=== PATIENT | female | born 1945 | race Caucasian/White ===

== ENCOUNTER 2020-11-07 09:25 | Inpatient (IN) | payer OTHER, BC ==
[~2020-11-07] VITALS: Ht 165.1 cm; Wt 54.0 kg
[2020-11-07 09:27] VITALS: BP 124/37
--- NOTE | 2020-11-07 09:47 | NUR ---
[facility] [phone]
--- NOTE | 2020-11-07 10:00 | NUR ---
PT HAS HX CELLULITIS IN LE BILATERALLY W TIGHTNESS AND SWELLING BILATERALLY W RIGHT BEING SLIGHTLY LARGER THAN LEFT.
[2020-11-07] MEDS ORDERED: AMLODIPINE BESY10 MG PO (10:53)
[2020-11-07] MEDS ORDERED: CYANOCOBAL1000 MCG/1 INJECTION (10:54)
[2020-11-07] MEDS ORDERED: DESLORATADINE5 MG PO (10:55)
[2020-11-07] MEDS ORDERED: ESCITALOPRAM OX20 MG PO (10:56)
[2020-11-07] MEDS ORDERED: LEVOTHYROXINE75 MCG PO (10:58)
[2020-11-07 11:00] LABS: HEMATOCRIT 31.9 % (37.0-47.0); HEMOGLOBIN 10.4 gm/dL (12.0-15.0); MCH 30.8 pg (26.0-34.0); MCHC 32.7 g/dL (28.0-37.0); MCV 94.1 fL (80.0-100.0); PLATELET COUNT 181 thou/uL (150-400); RBC 3.39 mil/uL (4.20-5.00); RDW 13.8 % (10.5-14.5); WBC 5.5 thou/uL (4.0-11.0)
[2020-11-07 11:07] LABS: ANION GAP 13 mmol/L (7-16); BUN 24 mg/dL (7-18); CHLORIDE 105 mmol/L (98-107); CO2 21 mmol/L (21-32); CREATININE 1.9 mg/dL (0.6-1.0); GLUCOSE 88 mg/dL (74-106); POTASSIUM 4.4 mmol/L (3.5-5.1); SODIUM 139 mmol/L (136-145)
[2020-11-07 11:13] LABS: URINE BILIRUBIN NEGATIVE (Negative); URINE BLOOD NEGATIVE (Negative); URINE CLARITY CLEAR; URINE COLOR YELLOW; URINE GLUCOSE-RANDOM* NEGATIVE (Negative); URINE KETONES NEGATIVE (Negative); URINE LEUKOCYTES-REFLEX NEGATIVE (Negative); URINE NITRITE-REFLEX NEGATIVE (Negative); URINE PROTEIN (DIPSTICK) TRACE (Negative); URINE UROBILINOGEN 0.2 E.U./dl (0.2-1.0)
[2020-11-07 11:17] LABS: ALBUMIN 3.4 g/dL (3.4-5.0); DIRECT BILIRUBIN 0.2 mg/dL (<0.1-0.2); SGOT 24 U/L (15-37); SGPT 22 U/L (14-59); TOTAL BILIRUBIN 0.8 mg/dL (0.2-1.0); TOTAL PROTEIN 6.9 g/dL (6.4-8.2); TROPONIN-I <0.06 ng/mL (<0.06)
[2020-11-07] MEDS ORDERED: LIPITOR 40 MG T40 M1 PO (11:19)
[2020-11-07] MEDS ORDERED: OMEPRAZOLE 20 M20 M1 PO (11:19)
[2020-11-07] MEDS ORDERED: GABAPENTIN 100100 MG PO (11:20)
[2020-11-07] MEDS ORDERED: CLINDAMYCIN HC300 MG PO (11:20)
[2020-11-07] MEDS ORDERED: CREON DR 6,0001 EACH PO (11:20)
[2020-11-07] MEDS ORDERED: PROPRANOLOL 1010 M1 PO (11:21)
[2020-11-07] MEDS ORDERED: TRAMADOL 50 MG50 MG PO (11:22)
[2020-11-07] MEDS ORDERED: CARAFATE 1 GM TA1 G1 PO (11:23)
[2020-11-07] MEDS ORDERED: MIRALAX119 GM PO (11:25)
[2020-11-07] MEDS ORDERED: SANDOSTATIN LAR20 MG IM (11:25)
[2020-11-07] MEDS ORDERED: CALCIUM 600 +1 EAC6 PO (11:25)
--- NOTE | 2020-11-07 11:44 | EKG ---
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 11/07/20 1144 1034 1034 Joo Dalton MD, FAC /EPI
[2020-11-07 13:12] LABS: ABSOLUTE NEUTROPHILS 3.6 thou/uL (1.4-8.2)
[2020-11-07 13:13] LABS: ANISOCYTOSIS 1+
[2020-11-07 13:14] LABS: HYPOCHROMASIA 2+; MICROCYTES 1+; POLYCHROMASIA 1+
[2020-11-07 13:15] LABS: OVALOCYTES FEW
[2020-11-07 13:19] VITALS: BP 124/78
[2020-11-07 16:52] VITALS: BP 135/69
--- NOTE | 2020-11-07 18:02 | NUR ---
PATIENT ARRIVED TO UNIT AT APPROX 1345. PATIENT WALKED TO BED; SBA W STEADY GAIT. PATIENT USES A WALKER AT HOME. ADMISSIONS HX AND EDUCATION DOCUMENTED. MED REC. COMPLETE. ON A REGULAR DIET AND TOLERATING WELL. SISTER AT BEDSIDE & HELPS ANSWER QUESTIONS. FALL PRECAUTIONS IN PLACE. WILL CONTINUE TO MONITOR
[2020-11-07 19:28] VITALS: BP 128/53
[2020-11-08 03:55] VITALS: BP 141/38
[2020-11-08 05:13] LABS: HEMATOCRIT 29.6 % (37.0-47.0); HEMOGLOBIN 9.9 gm/dL (12.0-15.0); MCH 30.8 pg (26.0-34.0); MCHC 33.4 g/dL (28.0-37.0); MCV 92.4 fL (80.0-100.0); RBC 3.2 mil/uL (4.20-5.00); RDW 13.7 % (10.5-14.5); WBC 4.9 thou/uL (4.0-11.0)
[2020-11-08 05:30] LABS: CALCIUM 8.7 mg/dL (8.5-10.1); CREATININE 1.8 mg/dL (0.6-1.0); POTASSIUM 3.6 mmol/L (3.5-5.1)
--- NOTE | 2020-11-08 07:49 | NUR ---
Assumed pt care at 1900. A/OX3,forgetful but able to voice needs. Hx of short term memory loss. VSS. C/o pain to left wrist, in a splint;medicted per EMAR with relief reported. Pt is up with RW/GB to the BR. Continent of B&B. Non-pitting edema noted on BLE,encouraged to keep extremities elevated while laying down. Extremities slightly pink and cool to touch. Fall precautions in place,needs reminders to call for help before getting out of bed but doesn't always call. Will continue to monitor pt.
[2020-11-08 09:15] VITALS: BP 189/87
--- NOTE | 2020-11-08 10:29 | 2DMMODE ---
[facility] [place] [address] 2 D/M-MODE ECHOCARDIOGRAM Name: CIARA EATON Room #: 455-P ADM IN M.R.#: [id number] Admission: 11/07/20 Attend Phys: Dimitri Walters MD Discharge: Date of : 43 Report #: [id number] THIS REPORT FOR: cc: Faisal Ramirez MD, Christopher B. MD Santiago, Patrick MD [facility] ~ APPROVED REPORT Study performed: 11/08/2020 09:20:20 EXAM: Comprehensive 2D, Doppler, and color-flow Echocardiogram Patient Location: Bedside Room #: [facility] Status: routine BSA: 1.59 HR: 73 bpm BP: 141/38 mmHg Rhythm: NSR Other Information Study Quality: Adequate/poor apical window Technically limited study due to thin body habitus/lung interference.. Indications BLE, CHF. 2D Dimensions IVSd: 9.04 (7-11mm) LVOT Diam: 20.35 (18-24mm) LVDd: 44.99 mm PWd: 8.84 (7-11mm) Ascending Ao: 33.42 (22-36mm) LVDs: 32.23 (25-40mm) Left Atrium: 41.08 (27-40mm) Aortic Root: 35.98 mm Volumes Left Atrial Volume (Systole) Single Plane 4CH: 64.01 mL Single Plane 2CH: 60.80 mL LA ESV Index: 42.00 mL/m2 Aortic Valve AoV Peak Ankur.: 2.39 m/s AO Peak Gr.: 22.93 mmHg LVOT Max P.20 mmHg AO Mean Gr.: 11.33 mmHg [facility] [address] [place] [address] 2 D/M-MODE ECHOCARDIOGRAM Name: CIARA EATON Room #: 455-P [facility] IN [facility]#: [id number] Admission: 11/07/20 Attend Phys: Dimitri Walters MD Discharge: Date of : 43 Report #: [id number] AO V2 Mean: 1.60 m/s LVOT Max V: 1.34 m/s AO V2 VTI: 46.49 cm KATINA Vmax: 1.82 cm2 Mitral Valve E/A Ratio: 0.6 MV Decel. Time: 387.98 ms MV E Max Ankur.: 0.68 m/s MV A Ankur.: 1.17 m/s MV PHT: 112.51 ms Pulmonary Valve PV Peak Ankur.: 1.63 m/s PV Peak Gr.: 10.63 mmHg Tricuspid Valve TR Peak Ankur.: 3.59 m/s RAP Estimate: 5.00 mmHg TR Peak Gr.: 52.00 mmHg PA Pressure: 57.00 mmHg Left Ventricle The left ventricle is normal size. There is normal LV segmental wall motion. There is normal left ventricular wall thickness. Left ventricular systolic function is normal. LVEF is 60-65%. Mild diastolic dysfunction is present (impaired relaxation pattern). Right Ventricle The right ventricle is normal size. The right ventricular systolic function is normal. Atria Left atrium is mildly dilated. Right atrium is severely dilated. Aortic Valve Aortic valve is moderately calcified. Mild aortic regurgitation. There is mild valvular aortic stenosis. Calculated aortic valve area is 1.8 cm2 with maximum pressure gradient of 23 mmHg and mean pressure gradient of 11 mmHg. Mitral Valve The mitral valve is normal in structure. Moderate mitral annular calcification. There is no mitral valve regurgitation noted. Tricuspid Valve [facility] [address] [place] [address] 2 D/M-MODE ECHOCARDIOGRAM Name: CIARA EATON Room #: 455-P [facility] IN [facility].#: [id number] Admission: 11/07/20 Attend Phys: Dimitri Walters MD Discharge: Date of : 43 Report #: [id number] The tricuspid valve is normal in structure. Severe tricuspid regurgitation. Estimated PAP is 55-60mmHg. Pulmonic Valve The pulmonary valve is normal in structure. Mild to moderate pulmonic regurgitation. Great Vessels The aortic root is normal in size. The ascending aorta is normal in size. IVC is normal in size and collapses >50% with inspiration. Pericardium Small pericardial effusion. <Conclusion> Normal left ventricular size/wall thickness Ejection fraction 60% Grade 1 diastolic dysfunction Normal right ventricular size/function Left atrium mildly dilated Right atrium severely dilated Color-flow Doppler study was performed of the aortic/mitral/tricuspid/pulmonary valve Aortic valve not well seen, moderate aortic valve calcification Mild aortic valve stenosis aortic valve area estimated 1.8 cm, mean gradient of 11 mmHg Mild aortic valve insufficiency Moderate mitral annular calcification Severe tricuspid valve insufficiency Pulmonary systolic pressure estimated 50-55 mmHg Small posterior pericardial effusion Normal aortic root size <ELECTRONICALLY SIGNED> By: Rafita Rosas MD, FACC 11/08/20 1029 1029 1029 Rafita Rosas MD, FACC /INF
--- NOTE | 2020-11-08 14:00 | NUR ---
PT ADMITTED RELATED TO CHF, ASHLEY, CELLULITIS. CM REVIEWED CHART AND SPOKE WITH CARE TEAM. CM MET WITH PT AT BEDSIDE THIS DAY. PT APPEARED TO BE A&O X4 BUT HAD SOME DIFFICULTY WITH WORD FINDING. PT INDICATED SHE RESIDES AT [facility]. PT INDICATED SHE USED A 4WW TO ASSIST WITH MOBILITY OPTIONS ADVISOR. PT INDICATED SHE HAD BEEN INDEPDENENT WITH ADLS OPTIONS ADVISOR. PT INDICATED SHE HAD BEEN GETTING HH THERAPY AT THE FACILITY. CM CALLED FACILITY AND THEY CONFIRMED THE ABOVE PT HAD BEEN GETTING THERAPY THROUGH [facility]. CM CALLED AND SPOKE WITH PT'S SON ISRRAEL Shelton9 HE IS DPOA. HE INDICATED THAT PT'S PCP IS DR. AMRIT LOPEZ. PT'S TWIN SISTER IS VISITING THE AFTERNOON. SON INDICATED THAT PT HAS AN APPOINTMENT TO SEE PSYC DR. SIERRA AT AT 1PM SUNDAY AND HE WAS WONDERING IF PT CAN BE SEEN BY PSYC IN HOUSE RELATED TO ANXIETY. CM NOTIFIED PHYSICIAN. PT INDICATED SHE PLANS TO RETURN TO [facility] WITH HH SERVICES ONCE MEDICALLY STABLE. PT IS GETTING DIARIST. CM FOLLOWING REGARDING DC PLANNING. CM FAXED CLINICAL UPDATED TO [facility].
--- NOTE | 2020-11-08 15:48 | NUR ---
ASSUMED CARE OF PATIENT AT SHIFT CHANGE. ASSESSMENT CHARTED. MEDICATIONS ADMINISTERED PER EMAR. VSS. PATIENT IS ALERT AND ORIENTED BUT DOES HAVE SHORT TERM MEMORY LOSS. PATIENT GETS UP TO BSC SBA BUT CAN BE IMPULSIVE AT TIMES. BED ALARM IS ON. PATIENT C/O PAIN ON L WRIST; EDUCATED PATIENT TO CALL WHEN NEEDING PAIN MEDICATION. PATIENT C/O DISCOMFORT ON IV SITE; IV FLUSHED AND STILL PATENT; NOW COVERED WITH COBAND AND "FEELING BETTER". TOLERATING PO DIET WELL WITH EXCELLENT APPETITE. WORKED WITH OT AND PT AND DID WELL. ECHOCARDIAM COMPLETE; SEE NOTES. FAMILY AT BEDSIDE. PATIENT VOICING NO FURTHER NEEDS. WILL CONTINUE TO MONITOR AND FOLLOW PLAN OF CARE
--- NOTE | 2020-11-08 16:44 | NUR ---
This nurse agrees with the FARM TECHNICIAN position.
[2020-11-08 19:51] VITALS: BP 156/54
--- NOTE | 2020-11-09 04:15 | NUR ---
ASSUMED CARE OF PT AT SHIFT CHANGE. PT IS AOX3-4 AND LETS NEEDS BE KNOWN. FALL PRECAUTION IN PLACE. PT REPORTED SOME PAIN AND WAS TREATED WITH PRN PAIN MEDS. ASSESSMENT CHARTED. BLE SWELLING IMPROVED. PT DENIED NAUSEA OR SOA. PT WAS ABLE TO GET COMFORTABLE AND SLEEP PART OF THE SHIFT. VSS AND NO S/S OF ACUTE DISTRESS. WILL CONTINUE TO MONITOR.
[2020-11-09 07:29] VITALS: BP 147/48
[2020-11-09 12:29] VITALS: BP 158/45
--- NOTE | 2020-11-09 14:59 | EKG ---
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 <ELECTRONICALLY SIGNED> By: Rafita Rosas MD, [facility] 11/09/20 1459 1233 1233 Rafita Rosas MD, [facility] /EPI
[2020-11-09 15:17] VITALS: BP 138/58
[2020-11-09 19:41] VITALS: BP 130/45
--- NOTE | 2020-11-09 19:47 | NUR ---
Assumed pt care at 7am.Pt in and out of bed independently.Assessment completed.vss. Pt has memory loss but able to follow simple command.Dr Walters here,no new order noted but stated that pt will be dc home in am if stable. Pt sister here, updates given.Pt c/o of red rash on bilateral lower legs.Dr Walters will order cream for pt in am.Dr Abarca here for consult. Will continue to monitor.
[2020-11-10 05:45] LABS: HEMATOCRIT 31.6 % (37.0-47.0); HEMOGLOBIN 10.5 gm/dL (12.0-15.0); MCH 30.5 pg (26.0-34.0); MCHC 33.2 g/dL (28.0-37.0); MCV 91.8 fL (80.0-100.0); RBC 3.44 mil/uL (4.20-5.00); RDW 13.8 % (10.5-14.5); WBC 6.2 thou/uL (4.0-11.0)
[2020-11-10 05:56] LABS: CALCIUM 8.5 mg/dL (8.5-10.1); CREATININE 1.9 mg/dL (0.6-1.0); POTASSIUM 3.6 mmol/L (3.5-5.1)
[2020-11-10 07:17] VITALS: BP 133/42
--- NOTE | 2020-11-10 07:28 | NUR ---
Assumed pt care at 1900. A/OX3,forgetful but able to voice needs. Denies pain on assessment,left wrist on a splint. Up with AX1 RW/GB. SR on telemetry. Fall precautions in place,calls as needed for help. Edema noted on BLE R>L,encouraged to keep extremities elevated and doing so.
--- NOTE | 2020-11-10 09:28 | NUR ---
BPCI letter & preferred network provided to patient chart, did not speak with patient, lives at [facility]
[2020-11-10 10:15] LABS: TROPONIN-I <0.06 ng/mL (<0.06); URIC ACID* 10.4 mg/dL (2.6-6.0)
--- NOTE | 2020-11-10 14:20 | NUR ---
Assumed pt care at 7am.Pt in chair resting with twin sister at bs visiting. Assessment completed.Vss.Bilateral lower extremity redness better today. Dr Collins here,order noted.Dc home cancelled. Dr Waddell here,additional order noted.Pt will be going for stress test in nuc med in am.Fall precautions in place.No verbal c/o.Will continue to monitor.
[2020-11-10 15:25] VITALS: BP 140/50
--- NOTE | 2020-11-10 15:58 | NUR ---
PT HAD CHEST PAIN YESTERDAY MID DAY AND PT IS BEING SEEN BY CARDIOLOGY. DR. PUCKETT WAS ALSO CONSULTED TO SEE PT DURING STAY. PLAN FOR PT TO RETURN TO [facility] WITH [facility] ONCE MEDICALLY STABLE. CM FOLLOWING INDICATED WITH DC PLANNING.
[2020-11-10 19:56] VITALS: BP 132/46
--- NOTE | 2020-11-11 06:30 | NUR ---
Assumed pt care at 1900. A/OX3,forgetful but able to make needs known. Up with SBA/RW. C/o pain to left wrist,medicated per EMAR with some relief reported. New orders put in by and implemented. Pt's SR/BBB on telemetry. No c/o chest pain or discomfort. Pt has been NPO since midnight for a stress test this AM. Reminded frequently not to drink water while up in the bathroom,verbalizes understanding. Resting quietly at this time w/o any distress, fall precautions in place.
[2020-11-11 08:13] VITALS: BP 131/67
[2020-11-11 09:39] LABS: CALCIUM 8.7 mg/dL (8.5-10.1); CREATININE 1.7 mg/dL (0.6-1.0); POTASSIUM 3.6 mmol/L (3.5-5.1)
[2020-11-11 15:25] VITALS: BP 135/46
--- NOTE | 2020-11-11 15:52 | NUR ---
PT HAD STRESS TEST THIS DAY. CARE TEAM INDICATED PT IT IS PROGRESSING TOWARD GOAL OF DISCAHRGE. PT HAD BEEN SEEN BY DR. PUCKETT HERE AND INDICATED DESIRE TO FOLLOWING UP WITH THE PHYSICIAN THAT SHE WAS GOING TO SEE FORENSIC ENGINEER UPON DC. ANTICPATE THAT PT WILL BE SAFE TO RETURN TO [facility] WITH [facility] ONCE MEDCIALLY STABLE. CM FOLLOW INDICATED WITH DC PLANNING.
[2020-11-11 16:15] VITALS: BP 135/46
--- NOTE | 2020-11-11 16:25 | NUR ---
ASSUMED CARE OF PATIENT AT SHIFT CHANGE. ASSESSMENT CHARTED. MEDS ADMINISTERED PER EMAR AFTER STRESS TEST. STRESS TEST COMPLETE THIS DAY; SEE NOTES. PATIENT ARRIVED BACK AROUND NOON AND RESUMED HER DIET AND TOLERATED WELL. PATIENT CLEARED TO DISCHARGE THIS DAY. IV DISCONTINUED. MEDS AND EDUCATION GIVEN TO PATIENT. PATIENT UP SBA TO WHEELCHAIR AND WHEELED OUT AFTER DISCHARGE
[2020-11-11] MEDS ORDERED: TORSEMIDE20 MG PO (16:30)
[2020-11-11] MEDS ORDERED: NORVASC5 MG PO (16:30)
== END 2020-11-11 17:50 | disposition home health service (06) | DRG 291 ==
LOC: ER 09:25 → 4W 13:19
PROVIDERS: Emergency Medicine; Nurse Practitioner; ADMIT Hospitalist; ATTEND Hospitalist
DX: I13.0 Hypertensive heart and chronic kidney disease with heart failure and stage 1 through stage 4 chronic kidney disease, or unspecified chronic kidney disease (principal); I50.31 Acute diastolic (congestive) heart failure; L03.114 Cellulitis of left upper limb; N18.4 Chronic kidney disease, stage 4 (severe); Z68.1 Body mass index [BMI] 19.9 or less, adult; F03.90 Unspecified dementia, unspecified severity, without behavioral disturbance, psychotic disturbance, mood disturbance, and anxiety; E78.5 Hyperlipidemia, unspecified; E03.9 Hypothyroidism, unspecified; K21.9 Gastro-esophageal reflux disease without esophagitis; F32.9 Major depressive disorder, single episode, unspecified; R53.81 Other malaise; R63.4 Abnormal weight loss; F41.9 Anxiety disorder, unspecified; D63.1 Anemia in chronic kidney disease; D3A.00 Benign carcinoid tumor of unspecified site; I08.2 Rheumatic disorders of both aortic and tricuspid valves; I87.8 Other specified disorders of veins; Z88.0 Allergy status to penicillin; Z88.2 Allergy status to sulfonamides; Z79.899 Other long term (current) drug therapy
CPT/HCPCS: 10045

== ENCOUNTER 2020-11-14 17:55 | Emergency (ER) | payer OTHER, BC ==
[~2020-11-14] VITALS: Ht 167.6 cm; Wt 54.4 kg
[~2020-11-14 17:55] MED LIST: AMLODIPINE BESY10 MG PO; CALCIUM 600 +1 EAC6 PO; CARAFATE 1 GM TA1 G1 PO; CLINDAMYCIN HC300 MG PO; CREON DR 6,0001 EACH PO; CYANOCOBAL1000 MCG/1 INJECTION; DESLORATADINE5 MG PO; ESCITALOPRAM OX20 MG PO; GABAPENTIN 100100 MG PO; LEVOTHYROXINE75 MCG PO; LIPITOR 40 MG T40 M1 PO; MIRALAX119 GM PO; NORVASC5 MG PO; OMEPRAZOLE 20 M20 M1 PO; PROPRANOLOL 1010 M1 PO; SANDOSTATIN LAR20 MG IM; TORSEMIDE20 MG PO; TRAMADOL 50 MG50 MG PO
[2020-11-14 19:23] VITALS: BP 137/38
== END 2020-11-14 19:24 | disposition home or self-care (01) ==
LOC: ER 17:55
DX: S09.90XA Unspecified injury of head, initial encounter (principal); K21.9 Gastro-esophageal reflux disease without esophagitis; E03.9 Hypothyroidism, unspecified; I13.0 Hypertensive heart and chronic kidney disease with heart failure and stage 1 through stage 4 chronic kidney disease, or unspecified chronic kidney disease; N18.9 Chronic kidney disease, unspecified; I50.9 Heart failure, unspecified; Z88.0 Allergy status to penicillin; Z88.2 Allergy status to sulfonamides; Z79.899 Other long term (current) drug therapy; W18.30XA Fall on same level, unspecified, initial encounter; Y93.89 Activity, other specified; Y92.89 Other specified places as the place of occurrence of the external cause; Y99.9 Unspecified external cause status

== ENCOUNTER 2020-11-18 19:20 | Inpatient (IN) | payer OTHER, BC ==
[~2020-11-18] VITALS: Ht 165.1 cm; Wt 54.2 kg
[2020-11-18 19:30] VITALS: BP 125/35
[2020-11-18 21:37] LABS: HEMATOCRIT 36.9 % (37.0-47.0); MCH 30.3 pg (26.0-34.0); MCHC 32.6 g/dL (28.0-37.0); MCV 93.1 fL (80.0-100.0); PLATELET COUNT 244 thou/uL (150-400); RBC 3.96 mil/uL (4.20-5.00); RDW 13.9 % (10.5-14.5); WBC 7.3 thou/uL (4.0-11.0)
[2020-11-18 21:40] LABS: ANION GAP 12 mmol/L (7-16); BUN 47 mg/dL (7-18); CHLORIDE 101 mmol/L (98-107); CO2 25 mmol/L (21-32); CREATININE 3.2 mg/dL (0.6-1.0); GLUCOSE 127 mg/dL (74-106); POTASSIUM 3.6 mmol/L (3.5-5.1); SODIUM 138 mmol/L (136-145)
[2020-11-18 21:50] LABS: ALBUMIN 3.7 g/dL (3.4-5.0); LIPASE 844 U/L (73-393); MAGNESIUM 1.6 mg/dL (1.8-2.4); SGOT 61 U/L (15-37); SGPT 40 U/L (30-65); TOTAL BILIRUBIN 1.1 mg/dL (0.2-1.0); TOTAL PROTEIN 8.1 g/dL (6.4-8.2); TROPONIN-I <0.06 ng/mL (<0.06)
[2020-11-18 22:24] LABS: ABSOLUTE NEUTROPHILS 5.1 thou/uL (1.4-8.2); PLATELET ESTIMATE NORMAL
[2020-11-18 23:09] VITALS: BP 125/35
[2020-11-19] VITALS (7 sets, daily range): BP systolic 139–178; BP diastolic 25–58
[2020-11-19 00:43] LABS: URINE BILIRUBIN NEGATIVE (Negative); URINE BLOOD NEGATIVE (Negative); URINE CLARITY SL CLOUDY; URINE COLOR YELLOW; URINE GLUCOSE-RANDOM* NEGATIVE (Negative); URINE KETONES NEGATIVE (Negative); URINE LEUKOCYTES-REFLEX NEGATIVE (Negative); URINE NITRITE-REFLEX NEGATIVE (Negative); URINE PROTEIN (DIPSTICK) TRACE (Negative); URINE SPECIFIC GRAVITY 1.025 (1.005-1.035); URINE UROBILINOGEN 0.2 E.U./dl (0.2-1.0)
[2020-11-19 05:37] LABS: CALCIUM 8.3 mg/dL (8.5-10.1); MAGNESIUM 1.5 mg/dL (1.8-2.4); POTASSIUM 3.2 mmol/L (3.5-5.1)
--- NOTE | 2020-11-19 06:53 | NUR ---
Pt admitted this shift from ED. Alert and oriented. Forgetful. pleasantly confused. Admission hx and assessment as documented. Clear liquid diet. LAC IV with NS @ 75. Pt in bed, resting. Fall precaution in place. Nursing to continue to monitor.
--- NOTE | 2020-11-19 07:31 | EKG ---
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 : 1945 Requested By: Marta Timmons Order Number: [id number] MD: Rafita Rosas Measurements Intervals [place] Rate: 58 P: 56 TN: 168 QRS: -29 QRSD: 160 T: -7 QT: 529 QTc: 520 Interpretive Statements Sinus rhythm Q's V1-3 Supraventricular bigeminy Left atrial enlargement Right bundle branch block Compared to ECG 11/09/2020 12:33:12 Atrial premature complex(es) now present Electronically Signed On 11-19-2020 7:31:44 CDT by Rafita Rosas [email or web address] <ELECTRONICALLY SIGNED> By: Rafita Rosas MD, FAC 11/19/20 0731 44 44 Rafita Rosas MD, [facility] /EPI
--- NOTE | 2020-11-19 17:18 | NUR ---
PT ADMITTED RELATED TO ARF. CM REVIEWED CHART AND SPOKE WITH CARE TEAM. PT IS FAMILIAR TO CM FROM PREVIOUS ADMISSION. SHE DISCHARGED 11/11/20 BACK TO [facility] WITH [facility]. PT USES A FWW TO ASSIST WITH MOBILITY. PT'S TWIN SISTER JAYSON LIVES LOCALLY AND PT'S SON RESIDES IN [place] BUT IS IN TOWN. THEY ARE INTERESTED IN HIGHER LEVEL OF CARE EITHER [facility] WITH HOSPICE OR [facility] WITH HOSPICE. CM MET WITH THEM AND EXPLAINED ALL LEVELS OF CARE AND SERVICES WELL HOSPICE. CM PROVIDED A LIST AND THEY ARE TO EARCH OUT TO FACILITIES AND TRY TO FINE PLACEMENT THIS WEEKEND WITH ANTICIPATED DC BEGINING OF NEXT WEEK. CM FOLLOWING TO ASSIST WITH DC PLANNING.
--- NOTE | 2020-11-19 20:44 | NUR ---
Received awake on bed. Due medications given as prescribed, able to swallow meds w/o difficulty. On room air. Vital signs stable. Pt may be forgetful, re-orientable and redirectable. On clear liquid for breakfast, tolerating well, advanced as tolerated as ordered; no nausea, no vomiting and no abdominal pain noted. On telemetry; no complains and signs of chest pain, crushing sensation and heaviness. Assisted in ADLs. Encouraged and assisted in eating and drinking as well. Continent of bowel and bladder, able to go to the toilet or use bedside commode with standby assist and gait belt. Falls bundle in place. On NS at 75cc/hr, infusing well at L AC. No complains of pain made during assessment. Visited by sister this AM, update given- wanted to talk to Dr Walters- physician informed and went to pt's room to talk to pt and her sisted; as per Dr Walters possible discharge disposition will be memory care with hospice- CM informed. Pt became more impulsive, confused and agitated this PM, pt refusing to go back to room, calling staff names and stating that we are harming her- pt reassured with the help of her sister, pt calmed down; Dr Walters informed re: this confusion episode- Order for haldol PRN obtained- night RN informed re: this. Upon checking pt's records on [employer] rec not reviewed by physician since admission, submitted meds for r/v- night RN informed re: this as well. Pt complained of soreness on her neck- physician informed and a/w orders. To continue monitoring patient.
[2020-11-20 05:26] LABS: MCH 31.1 pg (26.0-34.0); MCHC 33.8 g/dL (28.0-37.0); MCV 92.1 fL (80.0-100.0); RBC 3.15 mil/uL (4.20-5.00); RDW 13.6 % (10.5-14.5); WBC 10.1 thou/uL (4.0-11.0)
[2020-11-20 05:31] LABS: HEMOGLOBIN 9.8 gm/dL (12.0-15.0)
[2020-11-20 05:50] LABS: CALCIUM 8.1 mg/dL (8.5-10.1); CREATININE 2.3 mg/dL (0.6-1.0)
[2020-11-20 06:08] LABS: POTASSIUM 2.8 mmol/L (3.5-5.1)
[2020-11-20 08:21] VITALS: BP 150/51
--- NOTE | 2020-11-20 08:48 | NUR ---
UPON SHIFT ASSESSMENT, PT AOX3, TO PERSON, PLACE, AND TIME. PT NOTED TO BE INTERMITTENTLY CONFUSED, FORGETFUL AND NOTABLY RESTLESS WITH TREMORS. PT OBSERVED RESPONDING TO VISUAL INTERNAL STIMULI, REMANS CONSOLABLE. PT DENIES PAIN AND SOB WHILE ON ROOM AIR. PT ASSESSED WITH FLACC OF 3 PT OBSERVED WITH INTERMITTENT MOANING, GRIMACING, AND RESTLESSNESS. PT HAS PRN IV FENTANYLY Q4HR AND PRN PO APAP Q4HR AVAILABLE. PT TOLERATING PO INTAKE OF FLUIDS AND REGULAR DIET WITHOUT ISSUE. PT WITH INTERMITTENT NAUSEA. PT GIVEN PRN IV ZOFRAN Q4HR AT START OF SHIFT WITH NOTED ALLERGY, NO ADVERSE EFFECT OR STATUS CHANGES NOTED. ONCALL SENIOR ELECTRICAL PROJECT MANAGER NOTIFIED, RECEIVED ORDERS TO DISCONTINUE ZOFRAN, START PRN IV COMPAZINE Q6HR, GIVE ONETIME IV BENADRYL AND ONETIME IV PEPCID. AFTER ADMINISTRATION, PT CONTINUED WITHOUT ADVERSE EFFECT OR STATUS CHANGE. PT AMBULATING WITH X1 ASSIST TO BEDSIDE COMMODE, GAIT UNSTEADY. FREQUENT REPOSITIONING ENCOURAGED WHILE IN BED, PT NOTED TO SHIFT INDEPENDENTLY. SENSATION INTACT, CAPILLARY REFILL LESS THAN 3SEC, PERIPHERAL PULSES FAINT. PT ENCOURAGED TO NOTIFY STAFF FOR ALL NEEDS, CALL LIGHT WITHIN REACH, BED ALARM ON, BED LOCKED IN LOWEST POSITION, ROOM REMAINS NEAR NURSES STATION, FREQUENT MONITORING WILL CONTINUE. THROUGHOUT NIGHT PT RESTLESSNESS INCREASED PT OBSERVED ATTEMPTING TO GET OUT OF BED WITHOUT ASSISTANCE REPORTING SHE'S GOING HOME. PT RECEIVING PRN IV HALDOL Q6HR WITH POSITIVE EFFECT. FREQUENT MONITORING WILL CONTINUE.
--- NOTE | 2020-11-20 15:28 | NUR ---
ASSUMED PT CARE THIS AM. PT A&OX3 WITH CONFUSION AND FORGETFULNESS. PATIENT DOES NOT CALL WHEN NEEDED, PATIENT FREQUENTLY BEING CHECKED ON. PATIENT REPORTS NO NAUSEA OR PAIN. PATIENT HAD A BOWEL MOVEMENT TODAY. PATIENT ON ROOM AIR. TAKING MEDICATIONS WITHOUT ISSUE. UP WITH ASSISTANCE TO THE BATHROOM. IV PATENT, SALINE LOCKED. FALL PRECAUTIONS ARE IN PLACE, CALL LIGHT WITHIN REACH.
[2020-11-20 16:06] VITALS: BP 131/34
[2020-11-20 21:21] VITALS: BP 135/39
--- NOTE | 2020-11-21 04:33 | NUR ---
RECEIVED CARE OF THIS PATIENT AT 1900. PATIENT ALERT AND ORIENTED X PERSON, PLACE, TIME. UP TO BATHROOM/BSC SEVERAL TIMES. IMPULSIVE. HAS TRMORS IN BOTH UPPER EXTREMITIES. DENIES PAIN. EXPLAINED TO PATIENT SEVERAL TIMES THE NEED TO CALL FOR HELP WHEN GETTING UP. SLEPT VERY LITTLE THIS SHIFT.
[2020-11-21 07:36] LABS: HEMATOCRIT 29.5 % (37.0-47.0); HEMOGLOBIN 9.6 gm/dL (12.0-15.0); MCH 29.9 pg (26.0-34.0); MCHC 32.6 g/dL (28.0-37.0); MCV 91.6 fL (80.0-100.0); RBC 3.22 mil/uL (4.20-5.00); RDW 13.5 % (10.5-14.5); WBC 15.5 thou/uL (4.0-11.0)
[2020-11-21 07:41] LABS: CALCIUM 8.7 mg/dL (8.5-10.1); CREATININE 2.4 mg/dL (0.6-1.0)
[2020-11-21 07:59] VITALS: BP 151/51
[2020-11-21 12:44] LABS: URINE BILIRUBIN NEGATIVE (Negative); URINE BLOOD TRACE (Negative); URINE CLARITY CLEAR; URINE COLOR YELLOW; URINE GLUCOSE-RANDOM* NEGATIVE (Negative); URINE KETONES NEGATIVE (Negative); URINE LEUKOCYTES-REFLEX NEGATIVE (Negative); URINE NITRITE-REFLEX NEGATIVE (Negative); URINE PROTEIN (DIPSTICK) NEGATIVE (Negative); URINE UROBILINOGEN 0.2 E.U./dl (0.2-1.0)
--- NOTE | 2020-11-21 17:11 | NUR ---
Patient got up and walked in the hallway with a walker, tolerated fairly. urine frequency. pillow under the sides of the body to relieve the pressure on her bottum.
[2020-11-21 20:53] VITALS: BP 144/30
--- NOTE | 2020-11-22 03:16 | NUR ---
PT CARE ASSUMED WITH SON AT BEDSIDE OF THE PT.PT IS A/O X3 .PT IMPULSIVE AND CONFUSE AT TIMES.PT IS UP WITH STANDBY ASSIST TO BATHROOM AND BEDSIDE COMMODE.PT TAKES MEDICATION WHOLE WITH NO ISSUES.PT APPEAR TO BE IN NO ACUTE DISTRESS.PT C/O NAUSEA AND COMPAZINE ADMINISTER WITH RELIEF.WILL CONTINUE TO MONITOR
[2020-11-22 05:37] LABS: HEMATOCRIT 28.2 % (37.0-47.0); HEMOGLOBIN 9.4 gm/dL (12.0-15.0); MCH 30.4 pg (26.0-34.0); MCHC 33.4 g/dL (28.0-37.0); MCV 91.1 fL (80.0-100.0); RBC 3.1 mil/uL (4.20-5.00); RDW 13.6 % (10.5-14.5); WBC 11.9 thou/uL (4.0-11.0)
[2020-11-22 05:46] LABS: CALCIUM 8.1 mg/dL (8.5-10.1); CREATININE 2.3 mg/dL (0.6-1.0)
[2020-11-22 05:53] LABS: POTASSIUM 2.5 mmol/L (3.5-5.1)
[2020-11-22 08:31] VITALS: BP 170/54
--- NOTE | 2020-11-22 16:44 | NUR ---
CM MET WITH PT'S SON, PT, AND TWIN SISTER AT BEDSIDE THIS DAY. SON INDICATED THAT PLAN IS FOR PT TO MOVE TO [place] NEAR HIM AND HIS . HE IS WORKING TO FIND AL PLACEMENT THERE. IN THE MEANTIME HE IS INTERESTED IN PT GOING FOR SHORT TERM SKILLED RHAB HERE LOCALLY. HE ASKED THAT REFERRALS BE SENT TO [facility], AND [facility] FOR REVIEW FOR POSSIBLE ADMISSION. CM FAXED AND SPOKE WITH ALL LIAISONS. PT HAD BEEN ON SERVICE WITH [facility] AT [facility]. ANTICIPATE POSSIBLE DC TOMORROW. CM FOLLOWING REGARDING DC PLANNING.
--- NOTE | 2020-11-22 20:14 | NUR ---
Assumed pt care at 7am. Pt in and out of bed with sba several times today to bathroom with diarrhea.Pericare given.Assessment completed.vss. Pt has short term memory and anxiety.Family here and updates given.Pt c/o soreness and tenderness to bottom due to previous fall at [facility]. Dr Walters notified and he assessed pt and recommended reposition.Pt tolerated meds and diet.Family in room till shift change. Fall bundle in place.Report off to destiny kemp.
[2020-11-22 20:23] VITALS: BP 163/53
--- NOTE | 2020-11-23 03:33 | NUR ---
PT CARE ASSUMED WITH SON AT THE BEDSIDE WITH PT AT SHIFT CHANGE.PT IS A/O X 3 AND ALSO FORGETFUL WITH SHORT TERM MEMORY.PT IS UP WITH STANDBY ASSIST TO THE BEDROOM AND BSC.PT IS IMPULSIVE.IV ACCESS ON LT FA WITH NS AT 75CC/HR.PT TAKE MEDS WHOLE WITH NO ISSUES NOTED.WILL CONTINUE TO MONITOR
[2020-11-23 05:45] LABS: HEMATOCRIT 29.3 % (37.0-47.0); HEMOGLOBIN 9.8 gm/dL (12.0-15.0); MCH 30.6 pg (26.0-34.0); MCHC 33.5 g/dL (28.0-37.0); MCV 91.2 fL (80.0-100.0); RBC 3.22 mil/uL (4.20-5.00); RDW 13.6 % (10.5-14.5); WBC 10.5 thou/uL (4.0-11.0)
[2020-11-23 05:57] LABS: CALCIUM 8.2 mg/dL (8.5-10.1); CREATININE 1.9 mg/dL (0.6-1.0)
[2020-11-23 05:59] LABS: POTASSIUM 2.9 mmol/L (3.5-5.1)
[2020-11-23 08:00] VITALS: BP 167/51
[2020-11-23 09:44] VITALS: BP 167/51
[2020-11-23] MEDS ORDERED: NORVASC5 MG PO (09:49)
[2020-11-23] MEDS ORDERED: PROBIOTIC1 EAC2 PO (12:30)
--- NOTE | 2020-11-23 13:14 | NUR ---
PT INFORMATION AND DATA ARCHITECT ANALYST IS REMOVED SINCE DISCHARGE ORDER. IT IS PUT INTO PATIENT'S BOX BY NURSE AND CLEANED.
--- NOTE | 2020-11-23 14:31 | NUR ---
ASSUMPED PATIENT CARE AT 7:00 AM. PT HAD BREAKFAST AND LUNCH AT 90%. MORNING MEDICINE AND NOON MEDICINE GIVEN ORDER. ASSESSMENT PATIENT AND DETAILS IN ASSESMENT CHART. POTASSIUM AND MAGNISUM PO ADMINITRATED AND MONITOR HEART RHYTHM DURING THE SHIFT. USED GAIT BELT TO ASSIST PATIENT AMBULANCE IN THE ROOM. IV AND TELE HEART MONITOR WERE REMOVED BEFORE DISCHARGE. SON AND SISTER WERE WITH PATIENT TRANSFER TO THE [facility], LEFT AT 13:43 ON 11/23/20. CALLED REPORT TO NURSE OF THE FACILLATE. ALL QUESTIONS ANSWERED AND INFORMATION PROVIDED FOR FUTHER PATIENT CARE.
--- NOTE | 2020-11-23 14:48 | NUR ---
PT WAS ACCEPTED TO P SNF THIS DAY. CM FAXED ORDERS NEGATIVE COVID TEST. LIAISON MET WITH PT AND SON. ALL ARE AWARE AND AGREEABLE TO DC TO [facility] THIS DAY. [facility] ARRANGED FOR 1330. CHART COPY MADE. NURSE GIVEN NUMBER FOR REPORT. NO OTHER CM INTERVENTION INDICATED. CASE CLOSED.
== END 2020-11-23 13:43 | DRG 438 ==
LOC: ER 19:20 → 4W 22:56 → EROBS 22:56 → 4W 11-19 00:33
PROVIDERS: Emergency Medicine; Nurse Practitioner Family; ADMIT Hospitalist; ATTEND Hospitalist
DX: K85.90 Acute pancreatitis without necrosis or infection, unspecified (principal); N17.0 Acute kidney failure with tubular necrosis; I50.30 Unspecified diastolic (congestive) heart failure; I13.0 Hypertensive heart and chronic kidney disease with heart failure and stage 1 through stage 4 chronic kidney disease, or unspecified chronic kidney disease; N18.9 Chronic kidney disease, unspecified; K21.9 Gastro-esophageal reflux disease without esophagitis; E03.9 Hypothyroidism, unspecified; E78.5 Hyperlipidemia, unspecified; F41.9 Anxiety disorder, unspecified; F32.9 Major depressive disorder, single episode, unspecified; Z20.822 Contact with and (suspected) exposure to COVID-19; F03.90 Unspecified dementia, unspecified severity, without behavioral disturbance, psychotic disturbance, mood disturbance, and anxiety; D72.829 Elevated white blood cell count, unspecified; D3A.00 Benign carcinoid tumor of unspecified site; Z91.02 Food additives allergy status; Z85.038 Personal history of other malignant neoplasm of large intestine; Z88.0 Allergy status to penicillin; Z88.2 Allergy status to sulfonamides; Z88.8 Allergy status to other drugs, medicaments and biological substances; Z91.010 Allergy to peanuts
CPT/HCPCS: 10045

== ENCOUNTER → 2020-11-30 | Outpatient (CLI) | payer OTHER, BC ==
[~2020-11-30] MED LIST changes: +PROBIOTIC1 EAC2 PO
== END ==
LOC: SJCVC 14:12
PROVIDERS: ATTEND Internal Medicine Cardiovascular Disease
DX: I49.9 Cardiac arrhythmia, unspecified (principal); I45.10 Unspecified right bundle-branch block; R07.9 Chest pain, unspecified; I13.0 Hypertensive heart and chronic kidney disease with heart failure and stage 1 through stage 4 chronic kidney disease, or unspecified chronic kidney disease; I50.9 Heart failure, unspecified; N18.9 Chronic kidney disease, unspecified; R60.0 Localized edema; R60.9 Edema, unspecified; C7A.029 Malignant carcinoid tumor of the large intestine, unspecified portion; E78.5 Hyperlipidemia, unspecified; I08.2 Rheumatic disorders of both aortic and tricuspid valves; Z88.0 Allergy status to penicillin; Z88.2 Allergy status to sulfonamides; Z79.899 Other long term (current) drug therapy

== ENCOUNTER → 2020-12-20 | Outpatient (CLI) | payer OTHER, BC | LOC: SJCVC 14:11 | PROVIDERS: ATTEND Internal Medicine Cardiovascular Disease | DX: R94.31 Abnormal electrocardiogram [ECG] [EKG] (principal); R60.9 Edema, unspecified; I13.0 Hypertensive heart and chronic kidney disease with heart failure and stage 1 through stage 4 chronic kidney disease, or unspecified chronic kidney disease; I50.9 Heart failure, unspecified; N18.9 Chronic kidney disease, unspecified; R07.9 Chest pain, unspecified; R55 Syncope and collapse; E78.5 Hyperlipidemia, unspecified; Z88.2 Allergy status to sulfonamides; Z88.0 Allergy status to penicillin; Z79.899 Other long term (current) drug therapy ==